=== PATIENT | female | born 1950 | race Caucasian/White ===

== ENCOUNTER 2016-07-17 06:01 | Inpatient (IN) | payer MEDICARE, OTHER ==
[2016-07-12 17:03] LABS: ASCORBIC ACID (UR NOT ORDER) NEG (NEG); BILIRUBIN, URINE NEGATIVE (NEG); KETONE, URINE NEGATIVE (NEG); LEUKOCYTE ESTERASE(NOT OR MOD (NEG)
[2016-07-12 17:05] LABS: WBC (NOT ORDERED) (RFLEX) 3 (0-5)
[2016-07-12 17:42] LABS: BUN (BLOOD UREA NITROGEN) 23 MG/DL (6-23); CALCIUM, SERUM 10.2 MG/DL (8.5-10.4); CHLORIDE, SERUM 100 MMOL/L (96-112); CO2 (CARBON DIOXIDE) 29 MMOL/L (24-34); CREATININE 1.63 MG/DL (0.55-1.02); GFR AFRICAN AMERICAN 38 ML/MIN (>=60); GFR NON AFRICAN AMERICAN 33 ML/MIN (>=60); GLUCOSE, SERUM 205 MG/DL (60-99); INTERNATIONAL NORMAL RATI 1.1 UNITS (-); PARTIAL THROMBO TIME 27.2 SEC (22.5-37.2); POTASSIUM, SERUM 4.7 MMOL/L (3.5-5.3); PROTIME (NOT ORD) 13.8 SEC (12.0-14.5); SODIUM, SERUM 136 MMOL/L (135-148)
[2016-07-12 17:43] LABS: BASOPHILS 0.2 %; BASOPHILS ABSOLUTE 0.02 10/3/uL (0.0-0.16); EOSINOPHILS 1.8 %; EOSINOPHILS ABSOLUTE 0.15 10/3/uL (0.0-0.53); IMMATURE GRANULOCYTES 0.4 %; IMMATURE GRANULOCYTES ABSOLUTE 0.03 10/3/uL (0.0-0.11); LYMPHOCYTES 28.9 %; LYMPHOCYTES ABSOLUTE 2.36 10/3/uL (0.67-4.30); MEAN CORPUSCULAR HEMOGLOB 28.1 pg (26.0-34.0); MEAN PLATELET VOLUME 9.6 fL (9.2-13.0); MONOCYTES 4.5 %; MONOCYTES ABSOLUTE 0.37 10/3/uL (0.21-1.20); NEUTROPHILS 64.2 %; NEUTROPHILS ABSOLUTE 5.25 10/3/uL (2.02-8.40); PLATELET COUNT 278 10/3/uL (150-400); RBC DISTRIBUTION WIDTH 14.1 % (12.0-16.0); WHITE BLOOD CELLS 8.2 10/3/uL (4.5-10.5)
[2016-07-12 17:53] LABS: HEMATOCRIT 33.3 % (36.0-48.0); HEMOGLOBIN 11.4 g/dL (12.0-16.0); MANUAL DIFF NO %; MEAN CORPUS HGB CONC 34.2 g/dL (32.0-36.0); MEAN CORPUSCULAR VOLUME 82.2 fL (80-100); RED CELL COUNT 4.05 10/6/uL (4.0-5.6)
--- NOTE | ~2016-07-17 | OP ---
Record Of Operation [address] [place]. [address] NAME: FRANCISCA SAVAGE : 52 STATUS : ADM IN PAT#: [id number] AGE: 66 ADM/REG DATE : 07/17/16 MR#: [id number] REPORT SERV DATE: 07/18/16 DICTATED BY: CARLOS HAQUE DATE: 07/17/16 REPORT STATUS : Draft TRANSCRIBED BY: MODL DATE: 07/17/16 DATE OF PROCEDURE: 07/17/2016 PREOPERATIVE DIAGNOSES: 1. Neurogenic bladder (small capacity with high storage pressures and upper tract deterioration). 2. Recurrent urinary tract infection. POSTOPERATIVE DIAGNOSES: 1. Neurogenic bladder (small capacity with high storage pressures and upper tract deterioration). 2. Recurrent urinary tract infection. PROCEDURES PERFORMED: 1. Simple cystectomy. 2. Ileal conduit urinary diversion. SURGEON: Carlos haque M.D. ANESTHESIA: General. COMPLICATIONS: None. DRAINS: 1. Bradley-Schmitt. 2. NG tube. 3. Bilateral ureterointestinal anastomotic stents. DIRECTOR INSTRUMENTATION: Mr. Duenas. BLOOD LOSS: 250 mL. SPECIMEN: Supratrigonal cystectomy. INDICATION: Ms. Savage is a 66-year-old diabetic, who presented with urinary retention and a small capacity bladder with bilateral hydronephrosis. Cystogram showed grade 4 bilateral reflux. She is unable/unwilling to self-catheterize. She has had a fungal bezoar treated via ureteroscopy in the right upper tract. Her creatinine improves with catheterization and worsens when her indwelling catheter is taken out. She presents for simple cystectomy with ileal conduit urinary diversion. TECHNIQUE: Informed consent was obtained. She was brought to the operating room. General endotracheal anesthesia was administered. Mefoxin was administered perioperatively. The indwelling Jewell catheter was removed. A new sterile catheter was replaced. The abdomen was then shaved, prepped, and draped in the supine position with the bed flexed. Care was taken to pad all pressure points. A midline incision was made from the umbilicus down to Record Of Operation [address] [place]. [address] NAME: FRANCISCA SAVAGE : 52 STATUS : ADM IN PAT#: [id number] AGE: 66 ADM/REG DATE : 07/17/16 MR#: [id number] REPORT SERV DATE: 07/18/16 DICTATED BY: SHABNAMCARLOS DATE: 07/17/16 REPORT STATUS : Draft TRANSCRIBED BY: MODChristopher DATE: 07/17/16 the pubic symphysis. The peritoneal cavity was entered in the midline. There were minimal adhesions identified. She had previously undergone hysterectomy. I was able readily identify the right and left dilated ureters through the peritoneal surface as they coursed over the iliac vessels. The bowel was packed superiorly with a Bookwalter. Right and left ureters were circumferentially mobilized from their course over the iliac vessels down to just above the area where the uterine arteries would be expected to be identified. The peritoneal surface overlying the dome of the bladder was incised circumferentially. I was able to palpate the Jewell balloon. Superior vesicle pedicles were divided with the ligature. I opened the bladder inferiorly at approximately the level of the interureteric ridge. The remainder of the bladder was excised leaving the trigone in place down to the bladder neck. I used a ligature for this. The visible mucosa of the trigone was fulgurated with Bovie and imbricated with interrupted 2-0 Vicryl. The specimen was sent for permanent pathologic analysis. Right and left ureters were divided. The ureteral stumps were not oversewn. Right and left ureters were spatulated for 0.5 cm. It should be noted they were significantly dilated to perhaps 6 to 8 mm in width. 3-0 Vicryl stay sutures were placed to aid in mobilization. I mobilized the left ureter 3 or 4 cm through its course over the iliac vessels. The left ureter was brought along the sacral promontory beneath the sigmoid colon into the right lower quadrant. At this point, Dr. Guzman scrubbed into the case, harvested a suitable segment of terminal ilium. After bowel continuity was reestablished and the mesenteric trap was closed, I excised the stomal end of the conduit staple line. The retroperitoneal end of the conduit was oversewn to exclude the staple line. Enteric contents from the conduit were evacuated with irrigation and suction. A standard Joseph-type ureterointestinal anastomosis was performed with 4-0 PDS suture. First, I anastomosed the left ureter to the retroperitoneal ends of the conduit along the antimesenteric border. This was 2 cm distal to the retroperitoneal end of the conduit. This was interrupted [id number] anastomosis. Prior to completing anastomosis, a 7- Maltese ureterointestinal anastomotic stent was placed. The remainder of the anastomotic sutures were placed and tied. I next anastomosed the right ureter to the antimesenteric border of the ileal conduit approximately 4 cm distal along the conduit. Again, this was a Joseph-type anastomosis with interrupted 4-0 PDS suture. I did place a 7-Maltese stent again on the right prior to completing the anastomosis. The stomal site had been marked by the ostomy nurses two fingerbreadths below the rib cage. This was not a feasible stoma site. I elected to mature the ileal conduit below the umbilicus at the point of maximal bulge of her lower abdominal protuberance. I incised the skin and subcutaneous tissue down to the abdominal wall fascia. Fascia splitting was performed linearly. Muscle splitting was performed. I brought the stents and stoma through the stomal opening. The ileal conduit was secured at the fascial level with two separate 2- Record Of Operation [address] [address] NAME: FRANCISCA SAVAGE : 52 STATUS : ADM IN PAT#: [id number] AGE: 66 ADM/REG DATE : 07/17/16 MR#: [id number] REPORT SERV DATE: 07/18/16 DICTATED BY: CARLOS HAQUE DATE: 07/17/16 REPORT STATUS : Draft TRANSCRIBED BY: AKHIL DATE: 07/17/16 0 Vicryl sutures. The conduit was then matured at the skin level with 3-0 Vicryl interrupted sutures. The mucosa was everted for 1 cm. The stents were secured at the skin level with 4-0 nylon suture. Sponge counts were correct. The needle count was incorrect. I inspected the abdomen and saw no needle in the abdomen. I placed a Bradley-Schmitt through a separate stab incision in the left lower quadrant. This was placed in the pelvis near the retroperitoneal end of the conduit. I irrigated the pelvis. I closed the fascia with running #1 PDS suture with additional 0 Vicryl internal retention sutures. The wound was again irrigated. I re-gloved and closed the skin with subcuticular Monocryl. Stomal appliance was applied. KUB was obtained at this point, which showed no foreign body within the abdomen. The missing needle was ultimately found beneath the operative table on the ground. She was awakened and taken to Recovery in satisfactory condition. Postop plan is for three days of NG tube drainage and to hold off on advancing diet until return of flatus. JAILENE/AKHIL Carlos Haque M.D. / [id number] CC: Carlos Haque M.D.
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
--- NOTE | ~2016-07-17 | HP ---
History And Physical [address] [place]. [address] NAME: FRANCISCA SAVAGE : 52 STATUS : DIS IN PAT#: [id number] AGE: 66 ADM/REG DATE : 07/17/16 MR#: [id number] REPORT SERV DATE: 07/31/16 DICTATED BY: CARLOS HAQUE DATE: 07/31/16 REPORT STATUS : Draft TRANSCRIBED BY: MODL DATE: 07/31/16 DATE OF ADMISSION: 07/17/2016 CHIEF COMPLAINT: Neurogenic bladder with upper tract deterioration and chronic UTI. HISTORY OF PRESENT ILLNESS: Ms. Savage is a 66-year-old diabetic with longstanding history of persistent UTIs. She has a small capacity bladder with bilateral high-grade reflux and renal insufficiency that resolves with catheter placement. She is unable to self catheterize. She presents for simple cystectomy. Presumed etiology of her neurogenic bladder is either diabetes or that she was born with a neurogenic bladder. She has had no past urologic surgeries other than investigations to recurring persistent UTIs. PAST MEDICAL HISTORY: Fibromyalgia, type 2 diabetes, recurrent UTI, depression, chest pain, and hypertension. HOME MEDICATIONS: Percogesic, NovoLog, Lantus, and lisinopril. ALLERGIES: NONE KNOWN. SOCIAL HISTORY: . Nonsmoker. Nondrinker. FAMILY HISTORY: Arthritis, coronary artery disease. Mother with breast cancer. REVIEW OF SYSTEMS: No chest pain, fevers, chills, nausea, vomiting, or weight loss. She did notice a lump in her breast last week. PHYSICAL EXAMINATION: VITAL SIGNS: Blood pressure 125/59, heart rate 85, respirations 16, afebrile. GENERAL: Pleasant, ill-appearing, 66-year-old, appearing older than stated age, in no acute distress. HEENT: Sclerae anicteric. LUNGS: Clear. HEART: Regular rhythm. CHEST: Clear anteriorly. ABDOMEN: Soft, nontender, nondistended. No palpable mass. No rebound or guarding. No right or left CVA tenderness. : An indwelling Jewell catheter is draining clear yellow urine. No significant pelvic organ prolapse. LABORATORY DATA: Creatinine 1.6. INR 1.1. Hematocrit 33. IMAGING: Cystogram previously showed a small capacity bladder with high-grade bilateral reflux. IMPRESSION: Neurogenic bladder. History And Physical [address] [place]. [address] NAME: FRANCISCA SAVAGE : 52 STATUS : DIS IN PAT#: [id number] AGE: 66 ADM/REG DATE : 07/17/16 MR#: [id number] REPORT SERV DATE: 07/31/16 DICTATED BY: CARLOS HAQUE DATE: 07/31/16 REPORT STATUS : Draft TRANSCRIBED BY: MODChristopher DATE: 07/31/16 PLAN: 1. She is unable to self catheterize. I discussed this makes her a very poor candidate for bladder augmentation with ureteral reimplantation. She has done poorly with spontaneous voiding. I have also discussed simple cystectomy with ileal conduit diversion. She opts for the latter. She understands the risks of bleeding, infection, ureteral stenosis, parastomal hernia, and cardiopulmonary complication. 2. Her lesion will be worked up by Dr. Guzman postop. [facility]/AKHIL Carlos Haque M.D. / [id number] CC: Anila Schafer M.D.
--- NOTE | ~2016-07-17 | DS ---
Discharge Summary [facility] [address] [place]. [address] NAME: FRANCISCA SAVAGE : 52 STATUS : DIS IN PAT#: [id number] AGE: 66 ADM/REG DATE : 07/17/16 MR#: [id number] REPORT SERV DATE: 08/01/16 DICTATED BY: CARLOS HAQUE DATE: 07/31/16 REPORT STATUS : Draft TRANSCRIBED BY: MODL DATE: 07/31/16 ADMISSION DATE: 07/17/2016 DISCHARGE DATE: 07/25/2016 ADMITTING DIAGNOSIS: Neurogenic bladder. FINAL DIAGNOSES: 1. Neurogenic bladder. 2. Hypertension. 3. Diabetes. 4. Right breast mass. PROCEDURES PERFORMED: Simple cystectomy with ileal conduit urinary diversion. BRIEF HISTORY OF PRESENT ILLNESS: Ms. Savage has persistent UTIs, bilateral hydronephrosis, and was found to have a neurogenic bladder with bilateral reflux and a small capacity bladder. She presents for simple cystectomy per the discussion elsewhere. HOSPITAL COURSE: She was admitted and taken to the operating room. Simple cystectomy with ileal conduit diversion was performed. She admitted to the ICU postop for monitoring. She was extubated on the day of surgery. She was transferred to the floor on hospital day #2. She had slow return of bowel function with a bowel movement on the date of discharge. Otherwise, her recovery was unremarkable. Her stoma wafer did cover the incision, and she had superficial wound breakdown at discharge. She will be managed with daily wet-to-dry dressing changes. She was discharged home with prescriptions for Percocet, Bactrim, and stomal. Bilateral stents were in place at the time of discharge. She will have home healthcare for wound care; this will be once a day. She will have home healthcare to help her with the stomal changes for two weeks or so. She will follow up with me in one to two weeks. [facility]/AKHIL Carlos Haque M.D. / [phone] CC: Anila Schafer M.D.
--- NOTE | ~2016-07-17 | OP ---
Record Of Operation [facility] [address] [place]. [address] NAME: FRANCISCA SAVAGE : 52 STATUS : ADM IN PAT#: [id number] AGE: 66 ADM/REG DATE : 07/17/16 MR#: [id number] REPORT SERV DATE: 07/17/16 DICTATED BY: DUNG GUZMAN DATE: 07/17/16 REPORT STATUS : Draft TRANSCRIBED BY: MODL DATE: 07/17/16 DATE OF PROCEDURE: 07/17/2016 PREOPERATIVE DIAGNOSIS: Neurogenic bladder. POSTOPERATIVE DIAGNOSIS: Neurogenic bladder. OPERATION PERFORMED: Ileal harvest for conduit. ANESTHESIA: General. ESTIMATED BLOOD LOSS: Less than 10 mL. IV FLUIDS: Adequate. INDICATION FOR PROCEDURE: Ms. Savage is a 66-year-old white female, who has a neurogenic bladder with multiple recurrent infections. She is brought to the operating room today for a cystectomy and ileal conduit. DESCRIPTION OF OPERATION: The patient undergone a cystectomy and then entered the operating room suite. She had a lower midline incision. We mobilized the area of small bowel that was 20 cm from the ileocecal valve. This area was marked with a 3-0 silk suture. We then measured back 25 cm. The bowel was then transected distal to the silk suture and 25 cm proximally using a 75 OSBALDO stapler. Mesentery was mobilized and taken down partially using a LigaSure device. The segment of bowel was then placed close to the cecum. We then performed a [id number] functional end-to-end small bowel anastomosis using a 75 OSBALDO stapler for common enterotomy. We closed butt end of common enterotomy using a TA 60 stapler. The staple line was imbricated using 3-0 silk sutures. The mesentery defect was closed using 3-0 silk suture. The patient was then turned back over to Dr. Zambrano for completion of anastomoses. SHABNAM/AKHIL Dung Guzman M.D. / [id number] CC: Shalom Zambrano M.D.
[~2016-07-17 06:01] MED LIST: CEFT5 PO; FLUCON2 PO; K500 PO; LANTUSCART SC; NORCO1 TA1 PO; NOVOLOG SC; NOVOPEN SC; OMNICEF300 PO; PERCOGESIC TAB1 TAB PO; PRIN5 PO; PYR200 PO; Z-PAK PO
[2016-07-18 04:58] LABS: BASOPHILS 0.1 %; BASOPHILS ABSOLUTE 0.01 10/3/uL (0.0-0.16); EOSINOPHILS 0 %; IMMATURE GRANULOCYTES 0.3 %; IMMATURE GRANULOCYTES ABSOLUTE 0.03 10/3/uL (0.0-0.11); LYMPHOCYTES 11.3 %; MEAN CORPUSCULAR HEMOGLOB 28.1 pg (26.0-34.0); MEAN CORPUSCULAR VOLUME 82.7 fL (80-100); MONOCYTES 8.1 %; MONOCYTES ABSOLUTE 0.86 10/3/uL (0.21-1.20); NEUTROPHILS 80.2 %; NEUTROPHILS ABSOLUTE 8.54 10/3/uL (2.02-8.40); RBC DISTRIBUTION WIDTH 14.1 % (12.0-16.0); WHITE BLOOD CELLS 10.6 10/3/uL (4.5-10.5)
[2016-07-18 04:59] LABS: HEMATOCRIT 25.3 % (36.0-48.0); HEMOGLOBIN 8.6 g/dL (12.0-16.0); MANUAL DIFF NO %; PLATELET COUNT 176 10/3/uL (150-400); RED CELL COUNT 3.06 10/6/uL (4.0-5.6)
[2016-07-18 05:18] LABS: CHLORIDE, SERUM 105 MMOL/L (96-112); CO2 (CARBON DIOXIDE) 25 MMOL/L (24-34); CREATININE 1.63 MG/DL (0.55-1.02); GFR AFRICAN AMERICAN 38 ML/MIN (>=60); GFR NON AFRICAN AMERICAN 33 ML/MIN (>=60); SGOT(AST) 15 U/L (5-40); SGPT(ALT) 10 U/L (5-65); SODIUM, SERUM 138 MMOL/L (135-148)
[2016-07-18 05:20] LABS: A/G RATIO 1.1 (0.7-1.9); ALKALINE PHOSPHATASE 49 U/L (45-117); BUN (BLOOD UREA NITROGEN) 19 MG/DL (6-23); CALCIUM, SERUM 9.1 MG/DL (8.5-10.4); GLOBULIN 2.8 G/DL (2.5-4.1); GLUCOSE, SERUM 141 MG/DL (60-99); TOTAL PROTEIN 5.8 G/DL (6.0-8.5)
[2016-07-19 04:57] LABS: HEMATOCRIT 26.2 % (36.0-48.0); HEMOGLOBIN 8.9 g/dL (12.0-16.0)
[2016-07-19 04:58] LABS: CALCIUM, SERUM 9.3 MG/DL (8.5-10.4); CHLORIDE, SERUM 104 MMOL/L (96-112); CO2 (CARBON DIOXIDE) 25 MMOL/L (24-34); POTASSIUM, SERUM 4.6 MMOL/L (3.5-5.3); SODIUM, SERUM 137 MMOL/L (135-148)
[2016-07-19 04:59] LABS: BUN (BLOOD UREA NITROGEN) 15 MG/DL (6-23); CREATININE 1.12 MG/DL (0.55-1.02); GFR AFRICAN AMERICAN 60 ML/MIN (>=60); GFR NON AFRICAN AMERICAN 52 ML/MIN (>=60); GLUCOSE, SERUM 83 MG/DL (60-99)
[2016-07-20 06:31] LABS: BUN (BLOOD UREA NITROGEN) 15 MG/DL (6-23); CALCIUM, SERUM 9.7 MG/DL (8.5-10.4); CHLORIDE, SERUM 100 MMOL/L (96-112); CO2 (CARBON DIOXIDE) 23 MMOL/L (24-34); CREATININE 1.01 MG/DL (0.55-1.02); GFR AFRICAN AMERICAN 68 ML/MIN (>=60); GFR NON AFRICAN AMERICAN 58 ML/MIN (>=60); GLUCOSE, SERUM 82 MG/DL (60-99); POTASSIUM, SERUM 4.4 MMOL/L (3.5-5.3); SODIUM, SERUM 136 MMOL/L (135-148)
[2016-07-21 06:38] LABS: BASOPHILS 0.3 %; BASOPHILS ABSOLUTE 0.02 10/3/uL (0.0-0.16); EOSINOPHILS 3.1 %; EOSINOPHILS ABSOLUTE 0.22 10/3/uL (0.0-0.53); HEMATOCRIT 26.7 % (36.0-48.0); HEMOGLOBIN 9.1 g/dL (12.0-16.0); IMMATURE GRANULOCYTES 0.9 %; IMMATURE GRANULOCYTES ABSOLUTE 0.06 10/3/uL (0.0-0.11); LYMPHOCYTES 21.9 %; LYMPHOCYTES ABSOLUTE 1.53 10/3/uL (0.67-4.30); MEAN CORPUS HGB CONC 34.1 g/dL (32.0-36.0); MEAN CORPUSCULAR HEMOGLOB 28.2 pg (26.0-34.0); MEAN CORPUSCULAR VOLUME 82.7 fL (80-100); MEAN PLATELET VOLUME 9.5 fL (9.2-13.0); MONOCYTES 9.7 %; MONOCYTES ABSOLUTE 0.68 10/3/uL (0.21-1.20); NEUTROPHILS 64.1 %; NEUTROPHILS ABSOLUTE 4.49 10/3/uL (2.02-8.40); PLATELET COUNT 217 10/3/uL (150-400); RBC DISTRIBUTION WIDTH 13.9 % (12.0-16.0); RED CELL COUNT 3.23 10/6/uL (4.0-5.6)
[2016-07-21 06:48] LABS: ALBUMIN 2.7 G/DL (3.5-5.0); BUN (BLOOD UREA NITROGEN) 12 MG/DL (6-23); CHLORIDE, SERUM 103 MMOL/L (96-112); CO2 (CARBON DIOXIDE) 25 MMOL/L (24-34); CREATININE 0.98 MG/DL (0.55-1.02); GFR AFRICAN AMERICAN 70 ML/MIN (>=60); GFR NON AFRICAN AMERICAN 61 ML/MIN (>=60); PHOSPHORUS, SERUM 2.2 MG/DL (2.5-4.5); POTASSIUM, SERUM 4.5 MMOL/L (3.5-5.3); SODIUM, SERUM 137 MMOL/L (135-148)
[2016-07-21 06:53] LABS: GLUCOSE, SERUM 129 MG/DL (60-99)
[2016-07-21 06:57] LABS: MANUAL DIFF NO %
[2016-07-25] MEDS ORDERED: BACTRIM DS1 TAB PO (09:56)
[2016-07-25] MEDS ORDERED: PCET PO (09:57)
[2016-07-25] MEDS ORDERED: BISR PR (10:02)
[2016-07-25] MEDS ORDERED: MOVANTIK25 MG PO (14:52)
[2016-07-25] MEDS ORDERED: PR12.5 PO (14:53)
[2016-07-25] MEDS ORDERED: LANTUS SC (14:54)
[2017-01-11] MEDS ORDERED: VICTOZA18 MG/3 ML SC (22:04)
[2017-01-11] MEDS ORDERED: CYMBALTA60 PO (22:04)
[2017-01-11] MEDS ORDERED: ZOFRAN ODT4 MG SL (22:04)
[2017-01-11] MEDS ORDERED: AMIT10 PO (22:04)
[2017-01-11] MEDS ORDERED: PERCOGESIC TAB1 TAB PO (22:05)
[2017-01-11] MEDS ORDERED: MOVANTIK25 MG PO (22:05)
[2017-01-11] MEDS ORDERED: LANTUSCART SC (22:06)
[2017-01-11] MEDS ORDERED: NOVOPEN (22:06)
== END 2016-07-25 15:40 | disposition home health service (06) | DRG 654 ==
LOC: SDC/OF 06:01 → PACU 13:06 → MIC 17:18 → 4SO 07-18 19:59
PROVIDERS: Internal Medicine; Urology
DX: N31.8 Other neuromuscular dysfunction of bladder (principal); N39.0 Urinary tract infection, site not specified; E11.69 Type 2 diabetes mellitus with other specified complication; E11.65 Type 2 diabetes mellitus with hyperglycemia; K56.7 Ileus, unspecified; I10 Essential (primary) hypertension; Z87.440 Personal history of urinary (tract) infections; Z79.4 Long term (current) use of insulin; M79.7 Fibromyalgia; Z87.442 Personal history of urinary calculi; J40 Bronchitis, not specified as acute or chronic; K44.9 Diaphragmatic hernia without obstruction or gangrene; F32.9 Major depressive disorder, single episode, unspecified; Q62.7 Congenital vesico-uretero-renal reflux; G80.9 Cerebral palsy, unspecified; K59.03 Drug induced constipation; T40.695A Adverse effect of other narcotics, initial encounter; Y92.230 Patient room in hospital as the place of occurrence of the external cause; N63 Unspecified lump in breast
CPT/HCPCS: 36415; 71010; 71020; 74000; 76642; 80048; 80053; 80069; 81001; 82570; 82962; 83036; 83735; 85014; 85018; 85025; 85610; 85730; 86850; 86900; 86901; 87077; 87086; 87186; 87641; 88309; 93005; 97161-GP; A9270-GY; C2617; G0204; G8978-CK-GP; G8979-CH-GP; J0694; J1170; J2250; J2370; J2405; J2550; J2710; J2765; J2795; J3010; P9045

== ENCOUNTER 2016-09-20 07:16 | Day surgery (SDC) | payer MEDICARE, OTHER ==
[2016-09-18 18:17] LABS: BASOPHILS 0.5 %; BASOPHILS ABSOLUTE 0.04 10/3/uL (0.0-0.16); EOSINOPHILS 2.3 %; HEMOGLOBIN 10.8 g/dL (12.0-16.0); IMMATURE GRANULOCYTES 0.6 %; IMMATURE GRANULOCYTES ABSOLUTE 0.05 10/3/uL (0.0-0.11); LYMPHOCYTES 27.5 %; LYMPHOCYTES ABSOLUTE 2.35 10/3/uL (0.67-4.30); MEAN CORPUS HGB CONC 33.1 g/dL (32.0-36.0); MEAN CORPUSCULAR HEMOGLOB 27.3 pg (26.0-34.0); MEAN CORPUSCULAR VOLUME 82.5 fL (80-100); MEAN PLATELET VOLUME 9.4 fL (9.2-13.0); MONOCYTES 5.5 %; MONOCYTES ABSOLUTE 0.47 10/3/uL (0.21-1.20); NEUTROPHILS 63.6 %; NEUTROPHILS ABSOLUTE 5.44 10/3/uL (2.02-8.40); PLATELET COUNT 236 10/3/uL (150-400); RBC DISTRIBUTION WIDTH 13.8 % (12.0-16.0); WHITE BLOOD CELLS 8.6 10/3/uL (4.5-10.5)
[2016-09-18 18:22] LABS: HEMATOCRIT 32.6 % (36.0-48.0); MANUAL DIFF NO %; RED CELL COUNT 3.95 10/6/uL (4.0-5.6)
[2016-09-18 18:34] LABS: BUN (BLOOD UREA NITROGEN) 20 MG/DL (6-23); CALCIUM, SERUM 10.3 MG/DL (8.5-10.4); CHLORIDE, SERUM 110 MMOL/L (96-112); CO2 (CARBON DIOXIDE) 27 MMOL/L (24-34); CREATININE 1.12 MG/DL (0.55-1.02); GFR AFRICAN AMERICAN 60 ML/MIN (>=60); GFR NON AFRICAN AMERICAN 52 ML/MIN (>=60); GLUCOSE, SERUM 223 MG/DL (60-99); POTASSIUM, SERUM 4.7 MMOL/L (3.5-5.3); SGOT(AST) 21 U/L (5-40); SGPT(ALT) 25 U/L (5-65); SODIUM, SERUM 138 MMOL/L (135-148)
[2016-09-18 18:35] LABS: A/G RATIO 0.9 (0.7-1.9); ALBUMIN 3.4 G/DL (3.5-5.0); ALKALINE PHOSPHATASE 117 U/L (45-117); GLOBULIN 3.9 G/DL (2.5-4.1); TOTAL BILIRUBIN 0.5 MG/DL (0-1.2); TOTAL PROTEIN 7.3 G/DL (6.0-8.5)
--- NOTE | ~2016-09-20 | OP ---
Record Of Operation [facility] [address] [place]. [address] NAME: FRANCISCA SAVAGE : 52 STATUS : REG [facility] PAT#: [id number] AGE: 66 ADM/REG DATE : 09/20/16 MR#: [id number] REPORT SERV DATE: 09/20/16 DICTATED BY: DUNG GUZMAN DATE: 09/20/16 REPORT STATUS : Draft TRANSCRIBED BY: AKHIL DATE: 09/20/16 DATE OF PROCEDURE: 09/20/2016 PREOPERATIVE DIAGNOSIS: Right breast ductal carcinoma in situ. POSTOPERATIVE DIAGNOSIS: Right breast ductal carcinoma in situ. OPERATION PERFORMED: Right lumpectomy. SURGEON: Dung Guzman M.D. ANESTHESIA: General. ESTIMATED BLOOD LOSS: Less than 10 mL. IV FLUIDS: Adequate. INDICATION FOR PROCEDURE: Ms Savage is a very pleasant 66-year-old white female, who has had a recent diagnosis of a DCIS of the right breast. After the full risks and benefits of the treatment options, the patient has opted for a right lumpectomy. DESCRIPTION OF OPERATION: After appropriate sedation, the patient was prepped and draped in proper sterile fashion. Ultrasound probe was placed over the right breast. The lesion was both palpable and visualized under ultrasound. A limited periareolar incision was made on the lower right aspect of the right breast. Subcutaneous flaps were developed circumferentially around the palpable mass using cautery. This was taken down the chest wall. The cone tissue around the lesion was then excised. It was oriented with a suture placed with one knot anterior and two knots lateral. On palpation, there appeared to be good clear margins. We ultrasound the area. There appeared to be clear margins. At this point, the specimen was passed off the right lower-outer segment. We then approximated the deep tissues using interrupted 3-0 Vicryl suture. The skin was closed using interrupted 3-0 Vicryl suture. Steri-Strips and dressings were then placed. The patient was taken to the recovery room in satisfactory condition. SHABNAM/AKHIL Dung Guzman M.D. / [id number] CC: Anila Barahona M.D.
[~2016-09-20 07:16] MED LIST changes: +BACTRIM DS1 TAB PO; +BISR PR; +LANTUS SC; +MOVANTIK25 MG PO; +PCET PO; +PR12.5 PO
[2017-01-11] MEDS ORDERED: ZOFRAN ODT4 MG SL (22:04)
[2017-01-11] MEDS ORDERED: CYMBALTA60 PO (22:04)
[2017-01-11] MEDS ORDERED: AMIT10 PO (22:04)
[2017-01-11] MEDS ORDERED: VICTOZA18 MG/3 ML SC (22:04)
[2017-01-11] MEDS ORDERED: PERCOGESIC TAB1 TAB PO (22:05)
[2017-01-11] MEDS ORDERED: MOVANTIK25 MG PO (22:05)
[2017-01-11] MEDS ORDERED: LANTUSCART SC (22:06)
[2017-01-11] MEDS ORDERED: NOVOPEN (22:06)
[2017-01-16] MEDS ORDERED: REG5 PO (13:32)
== END 2016-09-20 13:25 | disposition home or self-care (01) ==
LOC: SDC 07:16
PROVIDERS: Specialist
PROC: 0HBT0ZZ Excision of Right Breast, Open Approach (ICD-10-PCS; principal; 2016-09-20 08:45)
DX: D05.11 Intraductal carcinoma in situ of right breast (principal); E11.9 Type 2 diabetes mellitus without complications; F32.9 Major depressive disorder, single episode, unspecified; F41.9 Anxiety disorder, unspecified; M79.7 Fibromyalgia; Z90.710 Acquired absence of both cervix and uterus; Z98.890 Other specified postprocedural states; Z79.4 Long term (current) use of insulin; Z79.899 Other long term (current) drug therapy; Z88.8 Allergy status to other drugs, medicaments and biological substances; Z87.440 Personal history of urinary (tract) infections; Z98.51 Tubal ligation status
CPT/HCPCS: 71020; 80053; 82962; 85025; 88307; 93005; A9270-GY; J0690; J2250; J2270; J2405; J3010